=== PATIENT | male | born 1980 | race Caucasian/White ===

== ENCOUNTER 2017-05-15 02:35 | Outpatient (CLI) | payer OTHER | END 2017-05-15 02:36 | disposition critical access hospital (66) | LOC: EMS 02:35 | PROVIDERS: ATTEND Surgery | DX: R55 Syncope and collapse (principal); R11.0 Nausea; R10.9 Unspecified abdominal pain; R42 Dizziness and giddiness | CPT/HCPCS: A0425; A0427 ==

== ENCOUNTER 2017-05-15 02:46 | Emergency (ER) | payer OTHER ==
[2017-05-15] MEDS: SODIUM CHLORIDE 0.9% 1,000 ML IV ONE ×2 (02:50→03:15)
[2017-05-15] MEDS ORDERED: PANTOPRAZOLE 40 MG VIAL IVP STA (03:02)
--- NOTE | 2017-05-15 03:06 | ED Physician Documentation ---
PD HPI GI BLEED - Stated complaint Stated Complaint: MULTI SYNCOPE/GI BLEED - Chief complaint Chief Complaint: Neuro - History obtained from History obtained from: Patient, EMS - History of Present Illness Timing - onset: How many days ago (4) Timing - details: Gradual onset, Still present Associated symptoms: Black/tarry stool, Diarrhea, Near syncope / syncope Contributing factors: Other (recent procedure) Similar symptoms before: Work up / diagnostics, Treatment Recently seen: Clinic, Surgery - Additional information Additional information: Patient is a 37 year old male with a history of esophageal mass who is presenting to the emergency department for black tarry stools and syncope. Patient had an upper endoscopy on wednesday by a dr. stafford at [facility] for esophageal mass. Since that time patient has had dark tarry stools. Patient states that he has passed out a few times over the last few days. Patient states that he had a syncopal episode that lasted over a minute tonight so the patient's girlfriend called ems. Upon initial evaluation in the emergency department patient was tachycardic and pale but awake and alert. Review of Systems Constitutional: denies: Fever, Chills Eyes: denies: Decreased vision, Photophobia Ears: reports: Reviewed and negative Nose: reports: Reviewed and negative. denies: Epistaxis Throat: reports: Reviewed and negative Cardiac: denies: Chest pain / pressure, Palpitations GI: reports: Diarrhea, Bloody / black stool. denies: Nausea, Vomiting : denies: Dysuria, Frequency Skin: reports: Other (pale) Musculoskeletal: reports: Reviewed and negative Neurologic: reports: Syncope, LOC. denies: Headache, Head injury Immunocompromised: denies: Immunocompromised PD PAST MEDICAL HISTORY - Past Surgical History Past Surgical History: No - Present Medications Home Medications: Ambulatory Orders Medication Instructions Recorded Confirmed No Known Home Medications [No 10/08/14 05/15/17 Known Home Medications] - Allergies Allergies/Adverse Reactions: Allergies Allergy/AdvReac Type Severity Reaction Status Date / Time zolpidem [From Ambien] Allergy Anaphylaxis Verified 05/15/17 02:49 - Social History Does the pt smoke?: No Smoking Status: Never smoker Does the pt drink ETOH?: Yes Does the pt have substance abuse?: No - Immunizations Immunizations: TDAP >10years/unknown PD ED PE EXPANDED - Eyes Eyes: Other (pale conjunctiva) - Cardiac Cardiac: Prolonged cap refill - Abdomen Abdomen: No: Distended, Rebound, Guarding - Rectal Rectal: Heme Occult Pos - QC +, Other (dark stools) - Derm Derm: Pale Results - Vitals Vitals: Vital Signs - 24 hr 05/15/17 05/15/17 03:21 03:37 Heart Rate 117 H 116 H Respiratory 14 18 Rate Blood Pressure 115/54 L 110/66 O2 Saturation 100 100 Oxygen O2 Source Room air - EKG (time done) 0308 Rate: Rate (enter#) (117) Rhythm: Sinus tachycardia [place]: Normal Intervals: Prolonged QT QRS: Normal Ischemia: Normal ST segments Compare to prior EKG: Old EKG unavailable - Labs Labs: Microbiology 05/15/17 02:55 Occult Blood - Final Stool Laboratory Tests 05/15/17 05/15/17 05/15/17 02:53 02:53 02:53 WBC 13.8 H RBC 1.64 L Hgb 4.8 L* Hct 14.2 L* MCV 86.8 MCH 29.3 MCHC 33.8 RDW 12.8 Plt Count 197 MPV 8.7 Neut # 10.7 H Lymph # 1.8 [place] # 1.2 H Eos # 0.1 Baso # 0.1 Absolute Nucleated RBC 0.09 Nucleated RBC % 0.7 PT INR APTT Sodium 136 Potassium 3.2 L Chloride 106 Carbon Dioxide 23 Anion Gap 7.0 BUN 25 H Creatinine 0.7 Estimated GFR (MDRD) 126 Glucose 147 H Calcium 7.2 L Total Bilirubin 0.3 AST 14 ALT < 10 L Alkaline Phosphatase 32 L Total Protein 4.4 L Albumin 2.7 L Globulin 1.7 L Albumin/Globulin Ratio 1.6 Lipase 23 Blood Type O POSITIVE Blood Type Recheck Antibody Screen NEGATIVE Crossmatch IS Only See Detail 05/15/17 05/15/17 03:13 03:13 WBC RBC Hgb Hct MCV MCH MCHC RDW Plt Count MPV Neut # Lymph # [place] # Eos # Baso # Absolute Nucleated RBC Nucleated RBC % PT 13.5 H INR 1.2 APTT 18.3 L Sodium Potassium Chloride Carbon Dioxide Anion Gap BUN Creatinine Estimated GFR (MDRD) Glucose Calcium Total Bilirubin AST ALT Alkaline Phosphatase Total Protein Albumin Globulin Albumin/Globulin Ratio Lipase Blood Type Blood Type Recheck O POSITIVE Antibody Screen Crossmatch IS Only PD MEDICAL DECISION MAKING - ED course Complexity details: reviewed old records, reviewed results, re-evaluated patient , considered differential, d/w patient, d/w family, d/w quality assurance consultant ED course: Patient was seen and examined at bedside. Patient was tachycardic and very pale. Fluids were continued while blood products were ordered. labs were drawn. rectal exam was performed which showed heme positive dark stools. Patient was treated with protonix 40mg IV push. [facility] was contacted and the case was discussed with the amusement park ride mechanic, Dr. macias. Who stated the patient was probably stable for the floor. Case was then discussed with Dr. Ferrari who accepted the patient. Patient was transfused two units while waiting for transport. Patient improved with the blood and fluids and had no syncopal episodes while in the emergency department. Departure - Departure Disposition: 02 Transfer Acute Care Hosp Clinical Impression: Upper GI hemorrhage, Symptomatic anemia Condition: Stable
[2017-05-15 03:11] LABS: BASOPHILS # (AUTO) 0.1 10^3/uL (0.0-0.1); BASOPHILS % (AUTO) 0.4 %; EOSINOPHILS # (AUTO) 0.1 10^3/uL (0.0-0.7); EOSINOPHILS % (AUTO) 0.4 %; LYMPHOCYTES # (AUTO) 1.8 10^3/uL (1.5-3.5); LYMPHOCYTES % (AUTO) 13.4 %; MEAN CORPUSCULAR HEMOGLOBIN 29.3 pg (27.0-31.0); MEAN CORPUSCULAR HGB CONC 33.8 g/dL (32.0-36.0); MEAN CORPUSCULAR VOLUME 86.8 fL (80.0-94.0); MEAN PLATELET VOLUME 8.7 fL (7.4-11.4); MONOCYTES # (AUTO) 1.2 10^3/uL (0.0-1.0); MONOCYTES % (AUTO) 8.4 %; NEUTROPHILS # (AUTO) 10.7 10^3/uL (1.5-6.6); NEUTROPHILS % (AUTO) 77.4 %; NUCLEATED RED BLOOD CELLS AUTO 0.7 /100WBC; RED BLOOD COUNT 1.64 10^6/uL (4.70-6.10); RED CELL DISTRIBUTION WIDTH 12.8 % (12.0-15.0); UNCORRECTED WHITE BLOOD COUNT 13.8 x10^3/uL; WHITE BLOOD COUNT 13.8 x10^3/uL (4.8-10.8)
[2017-05-15 03:15] LABS: HCT - HEMATOCRIT 14.2 % (42.0-52.0); HGB - HEMOGLOBIN 4.8 g/dL (14.0-18.0)
[2017-05-15] MEDS ORDERED: PANTOPRAZOLE 40 MG VIAL ONE (03:15)
[2017-05-15 03:16] LABS: ALBUMIN/GLOBULIN RATIO 1.6 (1.0-2.2); BILIRUBIN,TOTAL 0.3 mg/dL (0.2-1.0); BUN - BLOOD UREA NITROGEN 25 mg/dL (6-20); CALCIUM 7.2 mg/dL (8.5-10.3); CARBON DIOXIDE - CO2 23 mmol/L (21-32); CHLORIDE 106 mmol/L (101-111); CREATININE 0.7 mg/dL (0.6-1.2); GFR - MDRD 126 (>89); GLUCOSE 147 mg/dL (70-100); LIPASE 23 U/L (22-51); POTASSIUM 3.2 mmol/L (3.5-5.0); SODIUM 136 mmol/L (135-145); TOTAL PROTEIN 4.4 g/dL (6.7-8.2)
[2017-05-15] MEDS ORDERED: WATER FOR INJECTION,STERILE 10 ML ONE (03:16)
[2017-05-15 03:31] LABS: INR 1.2 (0.8-1.2); PT - PROTHROMBIN TIME 13.5 secs (9.9-12.6)
[2017-05-15] MEDS ORDERED: SODIUM CHLORIDE 0.9% 1,000 ML IV ONE (03:36)
[2017-05-15 03:40] LABS: PARTIAL THROMBOPLASTIN TIME 18.3 secs (24.9-33.3)
[2017-05-15 05:08] VITALS: BP 105/59
== END 2017-05-15 05:49 | disposition short-term general hospital (02) ==
LOC: EDUNIT# → ED 02:46
DX: K92.2 Gastrointestinal hemorrhage, unspecified (principal); R55 Syncope and collapse; D64.89 Other specified anemias; R22.1 Localized swelling, mass and lump, neck
CPT/HCPCS: 36415; 36430; 80053; 82270; 83690; 85025; 85610; 85730; 86850; 86900; 86901; 86920; 93005; 96361; 96374; 99284; 99285; P9016

== ENCOUNTER 2017-05-15 05:38 | Outpatient (CLI) | payer OTHER | END 2017-05-15 05:39 | disposition short-term general hospital (02) | LOC: EMS 05:38 | PROVIDERS: ATTEND Surgery | DX: K92.2 Gastrointestinal hemorrhage, unspecified (principal) | CPT/HCPCS: A0425; A0426 ==

== ENCOUNTER 2017-07-06 09:06 | Outpatient (CLI) | payer OTHER ==
[2017-07-06 10:28] LABS: BASOPHILS % (AUTO) 1.3 %; HCT - HEMATOCRIT 38.3 % (42.0-52.0); HGB - HEMOGLOBIN 12.9 g/dL (14.0-18.0); MEAN CORPUSCULAR HEMOGLOBIN 29.1 pg (27.0-31.0); MEAN CORPUSCULAR HGB CONC 33.6 g/dL (32.0-36.0); MEAN CORPUSCULAR VOLUME 86.7 fL (80.0-94.0); MEAN PLATELET VOLUME 8.1 fL (7.4-11.4); MONOCYTES % (AUTO) 25.3 %; NEUTROPHILS % (AUTO) 36.4 %; RED BLOOD COUNT 4.42 10^6/uL (4.70-6.10); RED CELL DISTRIBUTION WIDTH 13.7 % (12.0-15.0); UNCORRECTED WHITE BLOOD COUNT 2.8 x10^3/uL; WHITE BLOOD COUNT 2.8 x10^3/uL (4.8-10.8)
[2017-07-06 10:38] LABS: ALBUMIN/GLOBULIN RATIO 1.4 (1.0-2.2); BILIRUBIN,TOTAL 0.5 mg/dL (0.2-1.0); CALCIUM 9.1 mg/dL (8.5-10.3); CREATININE 0.8 mg/dL (0.6-1.2); POTASSIUM 3.8 mmol/L (3.5-5.0); TOTAL PROTEIN 7.1 g/dL (6.7-8.2)
[2017-07-06 10:53] LABS: BAND NEUTROPHILS % (MANUAL) 0 %
[2017-07-06 11:56] LABS: BASOPHILS % (MANUAL) 1 %; EOSINOPHILS % (MANUAL) 2 %; LYMPHOCYTES % (MANUAL) 37 %; NEUTROPHILS % (MANUAL) 42 %; TOTAL CELLS COUNTED 100
[2017-07-06 11:57] LABS: PLATELET ESTIMATE, MANUAL DECREASED (<130,000) (NORMAL); PLATELET MORPHOLOGY NORMAL APPEARANCE (NORMAL)
[2017-07-06 11:58] LABS: NP AUTO DIFFERENTIAL? YES; NP MAN DIFFERENTIAL? NO
== END 2017-07-06 09:07 | disposition home or self-care (01) ==
LOC: LAB 09:06
PROVIDERS: ATTEND Internal Medicine
DX: C16.9 Malignant neoplasm of stomach, unspecified (principal); C15.5 Malignant neoplasm of lower third of esophagus
CPT/HCPCS: 36415; 80053; 82378; 85025

== ENCOUNTER 2017-07-27 08:49 | Outpatient (CLI) | payer OTHER ==
[2017-07-27 09:22] LABS: BASOPHILS % (AUTO) 1.3 %; EOSINOPHILS % (AUTO) 1.2 %; HGB - HEMOGLOBIN 13.4 g/dL (14.0-18.0); LYMPHOCYTES # (AUTO) 1.3 10^3/uL (1.5-3.5); LYMPHOCYTES % (AUTO) 37.2 %; MEAN CORPUSCULAR HEMOGLOBIN 28.9 pg (27.0-31.0); MEAN CORPUSCULAR HGB CONC 34.1 g/dL (32.0-36.0); MEAN CORPUSCULAR VOLUME 84.7 fL (80.0-94.0); MEAN PLATELET VOLUME 8.2 fL (7.4-11.4); MONOCYTES % (AUTO) 27.7 %; NEUTROPHILS # (AUTO) 1.2 10^3/uL (1.5-6.6); NEUTROPHILS % (AUTO) 32.6 %; PLT - PLATELET COUNT 185 10^3/uL (130-450); RED BLOOD COUNT 4.65 10^6/uL (4.70-6.10); RED CELL DISTRIBUTION WIDTH 14.3 % (12.0-15.0); WHITE BLOOD COUNT 3.5 x10^3/uL (4.8-10.8)
[2017-07-27 09:30] LABS: ALBUMIN 4.3 g/dL (3.2-5.5); ALBUMIN/GLOBULIN RATIO 1.4 (1.0-2.2); BILIRUBIN,TOTAL 0.4 mg/dL (0.2-1.0); CALCIUM 9.4 mg/dL (8.5-10.3); CREATININE 0.9 mg/dL (0.6-1.2); TOTAL PROTEIN 7.4 g/dL (6.7-8.2)
== END 2017-07-27 08:50 | disposition home or self-care (01) ==
LOC: LAB 08:49
PROVIDERS: ATTEND Naturopath
DX: C16.9 Malignant neoplasm of stomach, unspecified (principal)
CPT/HCPCS: 36415; 80053; 82390; 82525; 82728; 83540; 84466; 84630; 85025; 85651; 86141

== ENCOUNTER 2017-08-18 10:50 | Outpatient (CLI) | payer OTHER ==
[2017-08-18 11:05] LABS: BASOPHILS % (AUTO) 0.7 %; EOSINOPHILS % (AUTO) 0.2 %; HGB - HEMOGLOBIN 13.3 g/dL (14.0-18.0); LYMPHOCYTES # (AUTO) 2.4 10^3/uL (1.5-3.5); LYMPHOCYTES % (AUTO) 47.1 %; MEAN CORPUSCULAR HEMOGLOBIN 29.3 pg (27.0-31.0); MEAN CORPUSCULAR HGB CONC 35.2 g/dL (32.0-36.0); MEAN CORPUSCULAR VOLUME 83.1 fL (80.0-94.0); MEAN PLATELET VOLUME 7.5 fL (7.4-11.4); MONOCYTES # (AUTO) 1.3 10^3/uL (0.0-1.0); MONOCYTES % (AUTO) 25.9 %; NEUTROPHILS # (AUTO) 1.3 10^3/uL (1.5-6.6); NEUTROPHILS % (AUTO) 26.1 %; PLT - PLATELET COUNT 171 10^3/uL (130-450); RED BLOOD COUNT 4.53 10^6/uL (4.70-6.10); RED CELL DISTRIBUTION WIDTH 14.6 % (12.0-15.0); WHITE BLOOD COUNT 5.2 x10^3/uL (4.8-10.8)
[2017-08-18 11:18] LABS: ALBUMIN 4.1 g/dL (3.2-5.5); ALBUMIN/GLOBULIN RATIO 1.2 (1.0-2.2); BILIRUBIN,TOTAL 0.5 mg/dL (0.2-1.0); CALCIUM 9.5 mg/dL (8.5-10.3); CREATININE 0.7 mg/dL (0.6-1.2); TOTAL PROTEIN 7.5 g/dL (6.7-8.2)
== END 2017-08-18 10:51 | disposition home or self-care (01) ==
LOC: LAB 10:50
PROVIDERS: ATTEND Internal Medicine
DX: C16.9 Malignant neoplasm of stomach, unspecified (principal)
CPT/HCPCS: 36415; 80053; 85025

== ENCOUNTER 2017-09-07 09:26 | Outpatient (CLI) | payer OTHER ==
[2017-09-07 10:17] LABS: BASOPHILS % (AUTO) 0.4 %; EOSINOPHILS % (AUTO) 0.3 %; HGB - HEMOGLOBIN 13.4 g/dL (14.0-18.0); LYMPHOCYTES % (AUTO) 14.3 %; MEAN CORPUSCULAR HEMOGLOBIN 28.7 pg (27.0-31.0); MEAN CORPUSCULAR HGB CONC 34.1 g/dL (32.0-36.0); MONOCYTES # (AUTO) 2.3 10^3/uL (0.0-1.0); MONOCYTES % (AUTO) 33.3 %; NEUTROPHILS # (AUTO) 3.6 10^3/uL (1.5-6.6); NEUTROPHILS % (AUTO) 51.7 %; PLT - PLATELET COUNT 184 10^3/uL (130-450); RED BLOOD COUNT 4.67 10^6/uL (4.70-6.10); RED CELL DISTRIBUTION WIDTH 15.9 % (12.0-15.0)
[2017-09-07 10:30] LABS: ALBUMIN/GLOBULIN RATIO 0.9 (1.0-2.2); BILIRUBIN,TOTAL 0.3 mg/dL (0.2-1.0); CALCIUM 9.7 mg/dL (8.5-10.3); CREATININE 0.8 mg/dL (0.6-1.2); TOTAL PROTEIN 8.4 g/dL (6.7-8.2)
== END 2017-09-07 09:27 | disposition home or self-care (01) ==
LOC: LAB 09:26
PROVIDERS: ATTEND Internal Medicine
DX: C16.9 Malignant neoplasm of stomach, unspecified (principal)
CPT/HCPCS: 36415; 80053; 85025

== ENCOUNTER 2017-09-29 11:48 | Outpatient (CLI) | payer OTHER ==
[2017-09-29 12:07] LABS: BASOPHILS % (AUTO) 0.3 %; EOSINOPHILS % (AUTO) 0.2 %; HGB - HEMOGLOBIN 11.7 g/dL (14.0-18.0); LYMPHOCYTES # (AUTO) 0.9 10^3/uL (1.5-3.5); LYMPHOCYTES % (AUTO) 15.4 %; MEAN CORPUSCULAR HGB CONC 34.7 g/dL (32.0-36.0); MEAN CORPUSCULAR VOLUME 83.8 fL (80.0-94.0); MEAN PLATELET VOLUME 7.1 fL (7.4-11.4); MONOCYTES # (AUTO) 1.5 10^3/uL (0.0-1.0); MONOCYTES % (AUTO) 25.6 %; NEUTROPHILS # (AUTO) 3.3 10^3/uL (1.5-6.6); NEUTROPHILS % (AUTO) 58.5 %; PLT - PLATELET COUNT 243 10^3/uL (130-450); RED BLOOD COUNT 4.01 10^6/uL (4.70-6.10); RED CELL DISTRIBUTION WIDTH 16.6 % (12.0-15.0); WHITE BLOOD COUNT 5.7 x10^3/uL (4.8-10.8)
[2017-09-29 12:22] LABS: ALBUMIN 3.9 g/dL (3.2-5.5); ALBUMIN/GLOBULIN RATIO 1.1 (1.0-2.2); BILIRUBIN,TOTAL 0.5 mg/dL (0.2-1.0); CREATININE 0.7 mg/dL (0.6-1.2); TOTAL PROTEIN 7.3 g/dL (6.7-8.2)
== END 2017-09-29 11:49 | disposition home or self-care (01) ==
LOC: LAB 11:48
PROVIDERS: ATTEND Internal Medicine
DX: C15.5 Malignant neoplasm of lower third of esophagus (principal)
CPT/HCPCS: 36415; 80053; 85025